=== PATIENT | female | born 1980 | race African-American/Black ===

== ENCOUNTER 2025-01-28 07:46 | Emergency (ER) | payer OTHER ==
[~2025-01-28] VITALS: Ht 162.6 cm; Wt 59.0 kg
[2025-01-28 07:53] VITALS: BP 118/67; TEMP 98
[2025-01-28] MEDS ORDERED: CEFTRIAXONE 500 MG VIAL ONE (08:08)
[2025-01-28] MEDS ORDERED: LIDOCAINE 1% INJ 50 ML MDV IJ ONE (08:08)
[2025-01-28] MEDS ORDERED: AMOX-430 PO (08:10)
[2025-01-28] MEDS ORDERED: DOXY100C2 PO (08:10)
[2025-01-28] MEDS ORDERED: FLUC150T5 PO (08:21)
[2025-01-28 08:47] VITALS: O2SAT 100
[2025-01-28] MEDS: CEFTRIAXONE 1 G VIAL IM ONE (08:47)
[2025-01-29 16:07] LABS: CHLAMYDIA TRACHOMATIS NAA Negative (Negative); NEISSERIA GONORRHOEAE NAA Negative (Negative)
== END 2025-01-28 08:47 | disposition home or self-care (01) ==
LOC: ER 07:56
DX: J02.9 Acute pharyngitis, unspecified (principal); Z11.3 Encounter for screening for infections with a predominantly sexual mode of transmission; R05.9 Cough, unspecified; R09.81 Nasal congestion; Z60.2 Problems related to living alone
CPT/HCPCS: 86403-TC; 87070-TC; 87491; 87591; J0696; J3490